=== PATIENT | male | born 2000 | race Hispanic/Latino ===

== ENCOUNTER 2024-06-14 19:13 | Emergency (ER) | payer SELFPAY ==
[2024-06-14 19:30] VITALS: BP 126/85
[2024-06-14 19:36] LABS: BASO% 0.7 % (0-3); EOS% 0.4 % (0-8); HEMATOCRIT 44.4 % (39.0-50.0); HEMOGLOBIN 15.2 g/dl (14.0-18.0); IMMATURE GRANULOCYTES 0.1 % (0.0-5.0); MEAN CELL VOLUME 85.5 fL CALC (80.0-100.0); MEAN CORPUSCULAR HGB 29.3 pG CALC (26.0-32.0); MEAN CORPUSCULAR HGB CONC 34.2 g/dL CAL (32.0-36.0); MONO% 10.3 % (2-13); NEUT# 5.57 thou/uL (1.82-7.42); NEUT% 69.5 % (42-76); RED BLOOD COUNT 5.19 mill/uL (4.70-6.10); RED CELL DISTRI WIDTH 12.2 % (11.5-15.5)
[2024-06-14 19:45] VITALS: BP 118/79
[2024-06-14 20:00] VITALS: BP 122/75
[2024-06-14 20:15] VITALS: BP 111/73
[2024-06-14 20:30] VITALS: BP 115/69
[2024-06-14 20:44] VITALS: BP 115/69
== END 2024-06-14 20:44 | disposition home or self-care (01) | DRG 179 ==
LOC: ED 19:13
PROVIDERS: Family Medicine
DX: U07.1 COVID-19 (principal); R05.9 Cough, unspecified; R09.89 Other specified symptoms and signs involving the circulatory and respiratory systems